=== PATIENT | male | born 2000 | race Caucasian/White ===

== ENCOUNTER 2022-11-25 19:25 | Observation (INO) | payer BC, SELFPAY ==
--- NOTE | ~2022-11-25 | US_ITS ---
EXAMINATION: US renal BI DATE: 11/26/2022 10:32 INDICATION: Acute kidney injury. TECHNIQUE: Multiple ultrasound grayscale images of the kidneys were obtained. COMPARISON: None. FINDINGS: The right kidney measures 11.5 x 4.6 x 6.1 cm. The left kidney measures 11.5 x 6.7 x 5.7 cm. The kidn eys demonstrate normal parenchymal echogenicity. There is no hydronephrosis. The bladder is normal. IMPRESSION: 1. Normal kidneys. No hydronephrosis. Reviewed, dictated and finalized at location A.
[2022-11-25 19:37] VITALS: BP 122/91; PULSE 80; RESP 16; TEMP 36.1; O2SAT 96
[2022-11-25 19:52] VITALS: PULSE 80
--- NOTE | 2022-11-25 20:13 | ED.GENADULT ---
HPI - General Adult General Chief complaint: Unspecified Stated complaint: Dehydrated, muscle cramps Time Seen by Provider: 11/25/22 19:46 History of Present Illness HPI narrative: 21-year-old male reports for evaluation of feeling dehydrated and muscle cramping all over x1 day. 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 States he has been dehydrated before this is how he presents. He reports muscle cramping in his back, abdomen, extremities. States he has been drinking a lot of water without relief and began vomiting multiple episodes today. Reports he is only urinated 1 time today and it was very dark. Denies fever, diarrhea, dysuria, dizziness or syncope. Last bowel movement was yesterday and normal. Related Data Home Medications Medication Instructions Recorded Confirmed No Home Medications 11/26/22 11/26/22 Allergies Allergy/AdvReac Type Severity Reaction Status Date / Time No Known Allergies Allergy Verified 11/25/22 19:26 Review of Systems Review of Systems: CONSTITUTIONAL: Denies fever, chills EYES: Denies visual changes, redness, or discharge. ENT: Denies rhinorrhea, congestion, sore throat, or otalgia. CARDIOVASCULAR: Denies chest pain, palpitations, or edema. RESPIRATORY: Denies cough or dyspnea. GASTROINTESTINAL: See HPI GENITOURINARY: Denies dysuria or hematuria. SKIN: Denies rash or itching. MUSCULOSKELETAL: See HPI NEUROLOGIC: Denies headache, numbness, dizziness, or weakness. PSYCHIATRIC: Denies anxiety or depression. [facility], LAT[facility] Social History Social History Smoking packs per day: 1 Smoking cigarettes per day: 20.0 Smoking status: Heavy tobacco smoker Second hand tobacco smoke exposure: Yes Alcohol intake: current Drinks per week: 14 Substance use: current Substance use type: marijuana Lack of Transportation: No Lack of Food: Never True Current Housing: I Have Housing Concerned About Future Housing: No Difficulty Paying Gas/Electric Bills: No Difficulty Paying for Meds: No Currently Unemployed: No Education: High School Diploma/GED Difficulty w/ Childcare or Family Care: No Spiritual care concerns: No Exam Narrative: GENERAL: Well-appearing, in no acute distress. HEAD: Normocephalic EYES: PERRLA ENT: Nares clear. Mucous membranes moist. Oropharynx without tonsillar hypertrophy exudate or other lesions. NECK: Supple. CHEST: No respiratory distress. Clear to auscultation, no adventitious breath sounds. HEART: Regular rate and rhythm. No murmur heard. Normal peripheral pulses. ABDOMEN: Soft, nontender, normal active bowel sounds. EXTREMITIES: Normal range of motion. No edema. Intermittent muscle spasms throughout back. SKIN: Warm, dry, no rash. NEURO: No focal deficits. Alert and oriented x3. PSYCH: Normal mood and affect. Course Course Emergency Course: Offered pain medications to the patient, however he declines. Vital Signs Vital signs: Vital Signs Temperature 97 F L 11/25/22 19:37 Pulse Rate 80 11/25/22 19:37 Respiratory Rate 16 11/25/22 19:37 Blood Pressure 122/91 H 11/25/22 19:37 Pulse Oximetry 96 11/25/22 19:37 Oxygen Delivery Room Air 11/25/22 19:37 Temperature 97.6 F 11/25/22 22:54 Pulse Rate 71 11/25/22 22:54 Respiratory Rate 18 11/25/22 22:54 Blood Pressure 106/67 11/25/22 22:54 Pulse Oximetry 99 11/25/22 22:54 Oxygen Delivery Room Air 11/25/22 19:37 Medical Decision Making MDM Narrative Medical decision making narrative: 21-year-old male reports for evaluation of generalized muscle spasms and feeling dehydrated after being on the sun for multiple hours the past 2 days at his work. Vitals stable. Patient is well-appearing on exam other than intermittent muscle spasms in his back. CBC and CMP significant for elevated white blood cell count of 16.4, chloride 91, creatinine 2.4, GFR 34,
--- NOTE | 2022-11-25 20:16 | ECG_ITS ---
Measurements Intervals [place] Rate: 68 P: 70 TX: 157 QRS: 260 QRSD: 114 T: 52 QT: 404 QTc: 432 Interpretive Statements SINUS RHYTHM INTRAVENTRICULAR CONDUCTION DELAY MINIMAL Q WAVES- INFERIOR LEADS ST ELEVATION IN DIFFUSE LEADS, PROBABLY EARLY REPOLARIZATION BORDERLINE ECG NO PREVIOUS ECG AVAILABLE FOR COMPARISON Electronically Signed On 11-25-2022 22:13:32 CDT by Nghia Ford D.O.
[2022-11-25 20:32] LABS: Basophils Absolute Auto 0.1 K/mm3 (0.0-0.1); Basophils Percent Auto 0.4 % (0.2-1.2); Hematocrit 52.8 % (42.0-52.0); Hemoglobin 18.8 g/dL (14.0-18.0); Immature Granulocyte Absolute 0.07 K/mm3 (0.00-0.031); Immature Granulocyte Percent A 0.4 % (0-0.5); Lymphocytes Absolute Auto 1.42 K/mm3 (0.9-3.2); Lymphocytes Percent Auto 8.7 % (18.3-44.2); Mean Corpuscular HGB Conc 35.6 g/dl (32-36); Mean Corpuscular Volume 87.1 fl (80-100); Mean Platelet Volume 10.2 fl (7.4-10.4); Monocytes Absolute Auto 1.1 K/mm3 (0.1-0.6); Monocytes Percent Auto 6.7 % (2.6-8.5); Neutrophils Absolute Auto 13.8 K/mm3 (1.3-6.7); Neutrophils Percent Auto 83.8 % (45.5-73.1); Platelet Count Result 371 k/mm3 (150-375); Red Blood Count 6.06 M/mm3 (4.6-6.20); Red Cell Distribution Width 14.4 % (11.5-14.5); White Blood Count 16.4 K/mm3 (4.5-10.0)
[2022-11-25 20:40] LABS: Alanine Aminotransferase 40 U/L (6-50); Albumin Level 5.9 g/dL (3.5-5.1); Alkaline Phosphatase 83 U/L (38-126); Anion Gap 17 mmol/L (8-16); Appearance Urine Cloudy (Clear); Aspartate Amino Transferase 47 U/L (17-59); Bacteria Urine None Seen /hpf; Bilirubin Urine 2+ (Negative); Bilirubin,Total 1.9 mg/dL (0.2-1.3); Blood Urea Nitrogen 35 mg/dL (9-20); Blood Urine Negative (Negative); Calcium 10.8 mg/dL (8.4-10.2); Carbon Dioxide 30 mmol/L (22-30); Chloride 91 mmol/L (98-107); Color Urine Dark Yellow (Yellow); Creatine Kinase 533 U/L (55-170); Estimated CRCL calculation 43 ml/min; Estimated Glomerular Filt Rate 34; Glucose 122 mg/dL (65-110); Glucose Urine UA Negative (Negative); Hyaline Casts Urine Present /lpf; Ketones Urine Trace mg/dL (Negative); Leukocyte Esterase Ur Negative LEU/UL (Negative); Lipase 58 U/L (23-300); Magnesium 2.2 mg/dL (1.6-2.3); Nitrate Urine Negative (Negative); Non Pathogenic Casts >20; Phosphorus 5.7 mg/dL (2.5-4.5); Potassium 3.8 mmol/L (3.4-5.0); Protein Urine 1+ mg/dL (Negative); RBC Urine 0-2 /hpf (0-2); Sodium 138 mmol/L (137-145); Specific Grav Ur 1.026 (1.001-1.035); Squamous Epithelial Cell Urine None seen /hpf (Few); WBC Urine 0-5 /hpf
[2022-11-25 20:41] LABS: Add Urine Microscopic? YES
[2022-11-25] MEDS: ONDANSETRON INJ 4 MG/2 ML VIAL IV PUSH (20:52)
[2022-11-25] MEDS: SODIUM CHLORIDE 0.9% IV 1,000 ML 999 ML IV CONT ×2 (20:52→21:34)
[2022-11-25 21:49] VITALS: BP 101/58; PULSE 89; RESP 14; O2SAT 98
--- NOTE | 2022-11-25 22:17 | PM.IMHP ---
H&P: HPI History of Present Illness Date/Time: 11/25/22 22:17 Chief Complaint: Dehydration Narrative: This is a 21-year-old male with no significant medical history who reports for evaluation of feeling dehydrated and generalized muscle cramping of 1 day duration.? 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 Patient recalls he has been dehydrated before this is how he presents.? He reports muscle cramping in his back, abdomen, extremities.? States he has been drinking a lot of water without relief and began vomiting multiple episodes today.? Reports he is only urinated 1 time today and the urine was very dark.? He denies fever, diarrhea, dysuria, dizziness or syncope.? Last bowel movement was yesterday and normal. Review of Systems Review of Systems: CONSTITUTIONAL: Negative for any fevers, chills, night sweats, tiredness, fatigue, malaise, anorexia or weight loss. CARDIOVASCULAR: Negative for chest pain, palpitations, dizziness, orthopnea or lower extremity edema. RESPIRATORY: Negative for shortness of breath, cough, wheezing, sputum. GENITOURINARY: Negative for frequency, nocturia, dysuria, hematuria. GYNECOLOGIC: Negative for abnormal bleeding. HEMATOLOGIC: Negative for any abnormal bleeding or bruising. MUSCULOSKELETAL: Negative for joint swelling, stiffness or pain. SKIN: Negative for rashes, eruptions, lesions or dryness. NEUROLOGIC: Negative for any focal neurologic complaints. PSYCHIATRIC: Negative for anxiety, panic, depression. [facility] Social History Social History Smoking packs per day: 1 Smoking cigarettes per day: 20.0 Smoking status: Heavy tobacco smoker Second hand tobacco smoke exposure: Yes Alcohol intake: current Drinks per week: 14 Substance use: current Substance use type: marijuana Lack of Transportation: No Lack of Food: Never True Current Housing: I Have Housing Concerned About Future Housing: No Difficulty Paying Gas/Electric Bills: No Difficulty Paying for Meds: No Currently Unemployed: No Education: High School Diploma/GED Difficulty w/ Childcare or Family Care: No Spiritual care concerns: No Meds Home Medications and Allergies Home Medications Medication Instructions Recorded Confirmed Type No Home Medications 11/26/22 11/26/22 History Allergies Allergy/AdvReac Type Severity Reaction Status Date / Time No Known Allergies Allergy Verified 11/25/22 19:26 Vital Signs Vital Signs - 24 hr 11/25/22 19:37 11/25/22 19:52 11/25/22 21:49 Temperature 97 F L Pulse Rate 80 80 89 Respiratory Rate 16 14 Blood Pressure 122/91 H 101/58 L Pulse Oximetry 96 98 Oxygen Delivery Room Air Exam Narrative: GENERAL: The patient is alert and oriented, in no apparent distress. He is pleasant and conversant in full sentences. HEENT: Pupils are equally round and briskly reactive to light. Extraocular muscles are intact. Oral mucous membranes are moist without lesions. NECK: The patient has no noted JVD. No adenopathy is appreciated. CHEST/LUNGS: Lungs are clear bilaterally without rhonchi, rales, or wheezes. There is no subcutaneous air appreciated. There is no tenderness to the chest wall. HEART: The patient has a regular rate and rhythm. No murmurs, rubs, or gallops are appreciated. Distal pulses are 2+. No carotid bruits appreciated. ABDOMEN: The patient?s abdomen is flat, soft, nontender, and nondistended. Bowel sounds are positive. No organomegaly is appreciated. No masses are appreciated. There are no peritoneal signs. EXTREMITIES: The patient has no peripheral edema. There is no focal long bone tenderness or deformity. SKIN: The patient?s skin is warm and dry, without rashes or lesions. PSYCHIATRIC: The patient has normal mental status and has an appropriate affect. NEUROLOGIC: The patient has 5/5 strength to the upper and lower extremities bilaterally. Sensa
[2022-11-25 22:20] VITALS: BP 131/74; PULSE 80; RESP 19; O2SAT 99
[2022-11-25 22:54] VITALS: BP 106/67; PULSE 71; RESP 18; TEMP 36.4; O2SAT 99
[2022-11-25] MEDS: LACTATED RINGERS 1,000 ML 999 ML IV CONT (23:23)
[2022-11-26] MEDS: LACTATED RINGERS 1,000 ML 999 ML IV CONT (00:25)
[2022-11-26] MEDS: LACTATED RINGERS 1,000 ML 100 ML IV CONT (04:31)
[2022-11-26 05:03] LABS: Creatinine Urine 109.9 mg/dL
[2022-11-26 05:04] LABS: Sodium Urine Random 43 meq/L
[2022-11-26 06:00] VITALS: BP 115/50; PULSE 58; RESP 18; TEMP 36.2; O2SAT 99
[2022-11-26 06:57] LABS: Hematocrit 39.7 % (42.0-52.0); Hemoglobin 13.5 g/dL (14.0-18.0); Mean Corpuscular Hemoglobin 30.2 pg (26-34); Mean Corpuscular Volume 88.8 fl (80-100); Platelet Count Result 248 k/mm3 (150-375); Red Blood Count 4.47 M/mm3 (4.6-6.20); Red Cell Distribution Width 14.1 % (11.5-14.5); White Blood Count 12.3 K/mm3 (4.5-10.0)
[2022-11-26 07:09] LABS: Anion Gap 0 mmol/L (8-16); Blood Urea Nitrogen 27 mg/dL (9-20); Calcium 8.3 mg/dL (8.4-10.2); Carbon Dioxide 34 mmol/L (22-30); Chloride 100 mmol/L (98-107); Estimated CRCL calculation 100 ml/min; Estimated Glomerular Filt Rate > 60; Glucose 97 mg/dL (65-110); Potassium 3.5 mmol/L (3.4-5.0); Sodium 134 mmol/L (137-145)
[2022-11-26 09:22] VITALS: O2SAT 100
--- NOTE | 2022-11-26 11:49 | PM.DS ---
DS: Admitting Diagnosis Discharge Date 11/26/22 Admitting Diagnosis Dehydration DS: Discharge Diagnosis Discharge Diagnosis (1) Acute dehydration: Code(s): E86.0 - Dehydration Status: Acute Assessment and Plan: This is a 21-year old gentleman with no significant past medical history who reports generalized cramps and reduced urinary output. On initial labs creatinine is elevated. Patient was started on IV fluids. He has received 4 L f IV fluids overnight. (2) SADE (acute kidney injury): Code(s): N17.9 - Acute kidney failure, unspecified Status: Acute Assessment and Plan: Acute non oliguric kidney injury due to dehydration: likely prerenal versus ischemic ATN. Continue supportive care. Calculate FENa. Obtain renal US. Avoid nephrotoxic medications. Consult renal in AM. Obtain drug screen. DS: Summary Hospital Course Hospital Course: 21-year-old male with no significant medical history presenting with dehydration and muscle cramping for about a day. He came in and had slightly elevated CK, all symptoms resolved and CK normalized with significant IV fluid administration. Education provided, he was discharged in stable condition. Please see above and med rec for details. Time Spent with Patient Time attestation: Total time spent providing and/or coordinating discharge services: Exam Narrative: GENERAL: The patient is alert and oriented, in no apparent distress. He is pleasant and conversant in full sentences. HEENT: Pupils are equally round and briskly reactive to light. Extraocular muscles are intact. Oral mucous membranes are moist without lesions. NECK: The patient has no noted JVD. No adenopathy is appreciated. CHEST/LUNGS: Lungs are clear bilaterally without rhonchi, rales, or wheezes. There is no subcutaneous air appreciated. There is no tenderness to the chest wall. HEART: The patient has a regular rate and rhythm. No murmurs, rubs, or gallops are appreciated. Distal pulses are 2+. No carotid bruits appreciated. ABDOMEN: The patient?s abdomen is flat, soft, nontender, and nondistended. Bowel sounds are positive. No organomegaly is appreciated. No masses are appreciated. There are no peritoneal signs. EXTREMITIES: The patient has no peripheral edema. There is no focal long bone tenderness or deformity. SKIN: The patient?s skin is warm and dry, without rashes or lesions. PSYCHIATRIC: The patient has normal mental status and has an appropriate affect. NEUROLOGIC: The patient has 5/5 strength to the upper and lower extremities bilaterally. Sensation is intact throughout. Gait was not tested. DS: Data Data Completed and Pending Labs on day of discharge: Labs from last 24 hours 11/26/22 11/26/22 11/25/22 06:38 04:47 20:12 WBC 12.3 H RBC 4.47 L Hgb 13.5 L D Hct 39.7 L MCV 88.8 MCH 30.2 MCHC 34.0 RDW 14.1 Plt Count 248 MPV 10.0 Immature Gran % (Auto) Neut % (Auto) Lymph % (Auto) [place] % (Auto) Eos % (Auto) Baso % (Auto) Lymph # (Auto) [place] # (Auto) Eos # (Auto) Baso # (Auto) Abs Immat Gran (auto) Absolute Neuts (auto) Absolute Nucleated RBC Nucleated RBC % Sodium 134 L Potassium 3.5 Chloride 100 Carbon Dioxide 34 H Anion Gap 0 L BUN 27 H Creatinine 1.00 Estim Creat Clear Calc 100 Estimated GFR > 60 Glucose 97 Calcium 8.3 L Phosphorus Magnesium Total Bilirubin AST ALT Alkaline Phosphatase Total Creatine Kinase Cancelled Total Protein 10.0 H Albumin 5.9 H Lipase 58 Urine Color Dark yellow Urine Appearance Cloudy H Urine pH 5.0 Ur Specific [place] 1.026 Urine Protein 1+ H Urine Glucose (UA) Negative Urine Ketones Trace H Ur Blood (Man) Negative Urine Nitrate Negative Urine Bilirubin 2+ H Urine Urobilinogen 1.0 Leukocyte Esterase Rfl Negative Urine RBC 0-2 Urine WBC 0-5 Ur Squamous E
== END 2022-11-26 12:50 | disposition home or self-care (01) ==
LOC: ANHED 21:21 → ANH3MEDSUR 23:37
PROVIDERS: Admitting Provider Internal Medicine; Emergency Provider Physician Assistant; Visit Provider Student in an Organized Health Care Education/Training Program
DX: E86.0 Dehydration (principal); N17.9 Acute kidney failure, unspecified; I45.4 Nonspecific intraventricular block; F17.210 Nicotine dependence, cigarettes, uncomplicated; F10.90 Alcohol use, unspecified, uncomplicated; F12.90 Cannabis use, unspecified, uncomplicated
CPT/HCPCS: 36415; 76775; 80048; 80053; 81001; 82550; 82570; 83690; 83735; 84100; 84300; 85025; 85027; 93005; 96360; 96361; 96374; 99285; G0378; G0379; J2405; J7030; J7120

== ENCOUNTER 2025-03-21 16:46 | Emergency (ER) | payer OTHER, SELFPAY ==
--- NOTE | ~2025-03-21 | XR_ITS ---
EXAMINATION: XR chest 2V 03/21/2025 17:25 INDICATION: Cough PROCEDURE: 2 view chest COMPARISON: No prior studies for comparison. FINDINGS: The lungs are clear. The cardiomediastinal silhouette is within normal limits. There are no pleural effusions. There is no pneumothorax suspected. IMPRESSION: 1: NO ACUTE CARDIOPULMONARY DISEASE. Reviewed, dictated and finalized at location O.
--- NOTE | ~2025-03-21 | CT_ITS ---
EXAMINATION: CT BRAIN W/O DATE: 03/21/2025 17:44 INDICATION: Recent head injury. Trauma. TECHNIQUE: Computed tomography (CT) of the head was performed without intravenous contrast. The dose-length product was 681.00 mGy-cm. Automated exposure control and iterative reconstruction technique were employed. COMPARISON: No prior studies for comparison. FINDINGS: Normal brain parenchymal volume for age. Normal duggan-white differentiation. No acute intracranial hemorrhage, infarction, mass or mass effect. No ventriculomegaly or midline shift. Midline sagittal images demonstrate a normal corpus callosum, craniovertebral junction and sella turcica. Basilar cisterns are patent. Paranasal sinuses and mastoids are pneumatized. No depressed skull fractures. IMPRESSION: 1. No acute intracranial abnormality. Reviewed, dictated and finalized at location O.
--- NOTE | ~2025-03-21 | CT_ITS ---
EXAMINATION: CT thoracic lumbar wo con, 03/21/2025 17:35 CDT HISTORY: back pain, recent trauma COMPARISON: No comparisons available. Technique: Axial images were obtained of the spine per protocol. One or more of the following dose reduction techniques were used: automated exposure control, adjustment of the mA and/or kV according to patient size, use of iterative reconstruction technique. Unless otherwise stated, incidental findings do not require dedicated follow up imaging Findings: The vertebral heights are intact. No fracture or subluxation. The disc heights are intact. Soft tissues there are renal calculi the largest right kidney midpole 2 mm. Impression: No acute abnormality. Reviewed, dictated and finalized at location A. Impression: No acute abnormality.
--- NOTE | ~2025-03-21 | CT_ITS ---
EXAMINATION: CT facial & cervical spine wo DATE: 03/21/2025 17:44 INDICATION: Recent head trauma TECHNIQUE: Computed tomography (CT) of the maxillofacial region and cervical spine was performed without intravenous contrast. The dose-length product (DLP) was 468.02 mGy-cm. Automated exposure control and iterative reconstruction technique were employed. COMPARISON: None FINDINGS: MAXILLOFACIAL CT: No acute abnormality. Paranasal sinuses and orbits are intact. CERVICAL SPINE CT: Normal cervical lordosis. Vertebral body and disc heights are preserved. Craniovertebral junction is normal. Odontoid process is normal. No evidence for perched facet. Lung apices are normal. Spinous processes are normal. IMPRESSION: 1. No acute abnormality of the facial bones or cervical spine. Reviewed, dictated and finalized at location O.
[2025-03-21 17:00] VITALS: BP 119/62; PULSE 98; RESP 16; TEMP 39.4; O2SAT 99
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
[2025-03-21] MEDS: ONDANSETRON INJ 4 MG/2 ML VIAL IV PUSH (17:47)
[2025-03-21] MEDS: MORPHINE SULFATE (*CRX) 4 MG/ML INJ IV PUSH (17:47)
[2025-03-21] MEDS: SODIUM CHLORIDE 0.9% IV 1,000 ML 999 ML IV CONT (17:47)
[2025-03-21 17:52] LABS: Strep Group A RT-PCR DETECTED (Negative)
[2025-03-21 18:00] LABS: Hematocrit 41.6 % (42.0-52.0); Hemoglobin 13.8 g/dL (14.0-18.0); Immature Granulocyte Percent A 0.4 % (0-0.5); Lymphocytes Absolute Auto 1.20 K/mm3 (0.9-3.2); Mean Corpuscular HGB Conc 33.2 g/dl (32-36); Mean Corpuscular Hemoglobin 29.8 pg (26-34); Mean Corpuscular Volume 89.8 fl (80-100); Nucleated Red Blood Cells Absolute Auto 0.000 K/mm3 (0.0-0.012); Nucleated Red Blood Cells Perc 0.0 % (0.0-0.2); Platelet Count Result 239 k/mm3 (150-375); Red Blood Count 4.63 M/mm3 (4.6-6.20); White Blood Count 9.7 K/mm3 (4.5-10.0)
--- OUTSIDE RECORDS SUMMARY | 2025-03-21 18:01 | XMS_ITS | Clinical Summary ---
Author Organization [facility] Address [address] [place] [address] Care Team Providers Care Php Developer Name Role Phone Nia Kong CUSTOMER SUPPORT PROFESSIONAL-DEVELOPMENT SPEC Primary Care Provider + Source Comments [facility],non-owned Affiliates and Associated Physician Practices is amultiple site organization consisting of ambulatory clinics and hospital sitesin [place], [place], [place] and [place]. This disclosure is being madepursuant to the Care Everywhere program and may not contain all information available regarding this patient. Last updated 18.[facility] Allergies No known active allergies Medications * This document contains information received from the source organization and may not represent a complete record from that organization. * Be aware that medications may not be up to date on this document. Alwaysverify current medications with the patient. docusate sodium (COLACE) 100 MG capsule Take 1 capsule by mouth 2 times daily as needed for Constipation (relief of difficult bowel movements) 0 Active acetaminophen (TYLENOL) 500 MG tablet Take 1 tablet by mouth every 6 hours as needed for Fever or Pain Maximum allowable Acetaminophen amount = 4 Grams (4000 mg) / 24 hours. 0 0 Active ibuprofen (MOTRIN) 800 MG tablet Take 1 tablet by mouth every 6 hours as needed for Pain 30 tablet 0 Active tamsulosin (FLOMAX) 0.4 MG capsule Take 1 capsule by mouth once daily after breakfast At the same time every day after a meal. 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 (F LUZONE; FLULAVAL; FLUARIX; AFLURIA QUADRIVALENT; 6MO+), 0.5 ML (IIV4) 06/11/2020 Social History Tobacco Use Types Packs/Day Years Used Date Smoking Tobacco: Every Day Cigarettes 1 3 Smokeless Tobacco: Never Tobacco Cessation:Ready to Q uit: No; Counseling Given: Yes Alcohol Use Standard Drinks/Week Comments No 0 (1 standard drink = 0.6 oz pur e alcohol) very minimal Sex and Gender Information Value Date Recorded Sex Assigned at Not on file Legal Sex Male 9:59 AM CDT Gender Identity Not on file Sexual Orientation Not on file Last Filed Vital Signs Vital Sign Reading Time Taken Comments Blood Pressure 104/60 08/30/2020 10:54 AM INSPECTOR RECEIVING Pulse 84 08/30/2020 10:54 AM INSPECTOR RECEIVING Temperature 36.2 C (97.2 F) 08/30/2020 10:54 AM INSPECTOR RECEIVING Respiratory Rate 18 08/30/2020 10:5 4 AM INSPECTOR RECEIVING Oxygen Saturation 100% 08/30/2020 10: 54 AM INSPECTOR RECEIVING Inhaled Oxygen Concentration - - Weight 68.9 kg (151 lb 12.8 oz) 021 10:54 AM INSPECTOR RECEIVING Height 182.9 cm (6') 08/30/2020 10:54 AM INSPECTOR RECEIVING Body Mass Index 20.59 08/30/2020 10:54 AM INSPECTOR RECEIVING Plan of Treatment Health Maintenance Due Date Last Done Comments HIV SCREENING 2013 HPV VACCINE (1 - Male 3-dose series) 2013 DTAP/TDAP/TD VACCINES (1 - Tdap) 2017 HEPATITIS B VACCINE (1 of 3 - 19+ 3-dose series) 2017 DEPRESSION SCREENING 06/28/2024 COVID-19 VACCINE (1 - 4-2 5 season) 2025 INFLUENZA VACCINE (#1) 2025 06/11/2020 ZOSTER VACCINE (1 of 2) 2048 HEPATITIS C SCREENING Completed 06/09/2020 HIB VACCINE Aged Out No longer eligi ble based on patient's age to complete this topic MENINGOCOCCAL (Group B) VACC INE SHARED DECISION-MAKING Aged Out No longer eligibl e based on patient's age to complete this topic MENINGOCOCCAL GROUPS A/C/Y/W VACCINE Aged Out No longer eligible b ased on patient's age to complete this topic PNEUMOCOCCAL VACCINE Aged Out No long er eligible based on patient's age to complete this topic Medical Devices Implanted Type Area Economic Geographer Device Identifier Shelf Expiration Date Model / Serial / Lot Stent Uret 6fr 28cm Pgtl Crv Tpr Tip Implanted:Qty: 1 on 06/11/2020 by Cheryl Oconnor MD at [facility] Right: Ureter [employer] 09/05/2022 [id number] / / [id number] Procedures Procedure Name Priority Date/Time Associated Diagnosis Comments HEPATITIS C AB SCREEN RFLX NAAT QUANT STAT 06/09/2020 10:13 PM INSPECTOR RECEIVING from Last 3 Months or Most Recently Relevant to Health Maintenance Results * HEPATITIS C AB SCREEN RFLX NAAT QUANT (06/09/2020 10:13 PM INSPECTOR RECEIVING) Hepatitis C Antibody Non-react nela Non-reac tive 06/09/2020 11:23 PM INSPECTOR RECEIVING [facility] Comment:Hepatitis C Antibody screen indicates no serologic evidence of past or current infection with Hepatitis C Virus. Patients with unexplained liver disease who are immunocompromised or suspected of having acute Hepatitis C infection may benefit from Nucleic Acid Test (RAZ) for Hepatitis C Viral RNA to confirm Hepatitis C status. Blood BLOOD SPECIMEN / Unknown Venipuncture / Unknown 06/09/2020 10:13 PM INSPECTOR RECEIVING 06/09/2020 6:15 PM INSPECTOR RECEIVING us Leandra Pearson MD LAB - CHEMISTRY ORDERABLES Final Result [facility] [address] [place] [address], [facility] [phone] from Last 3 Months or Most Recently Relevant to Health Maintenance Insurance * Guarantor: DIEGO SCHNEIDER Account Type Relation to Patient Date of Phone Billing Address Personal/Family Mother [employer] Advance Directives * Full Code (Latest Code Status on File) Date Activated Date Inactivated Comments 07/22/2018 1:49 PM 07/23/2018 4:20 PM Care Teams Php Developer Relationship Specialty Start Date End Date Nia Kong, CUSTOMER SUPPORT PROFESSIONAL-DEVELOPMENT SPEC [address] [place], [place] [id number] PCP - General Nurse Practitioner 02/14/15
[2025-03-21 18:05] LABS: Influenza A QL RT-PCR Negative (Negative); Influenza B QL RT-PCR Negative (Negative); RSV RNA, RT-PCR Negative (Negative); SARS-CoV-2 RNA PCR Negative (Negative)
[2025-03-21 18:05] LABS: Add Urine Microscopic? YES; Appearance Urine Clear (Clear); Glucose Urine UA Negative (Negative); Leukocyte Esterase Ur 1+ LEU/UL (Negative); Nitrate Urine Negative (Negative); Non Pathogenic Casts 0-2; Specific Grav Ur 1.016 (1.001-1.035)
[2025-03-21 18:11] LABS: Alanine Aminotransferase 23 U/L (6-50); Albumin Level 4.1 g/dL (3.5-5.1); Alkaline Phosphatase 51 U/L (38-126); Anion Gap 7 mmol/L (4-12); Aspartate Amino Transferase 30 U/L (17-59); Bilirubin,Total 0.5 mg/dL (0.2-1.3); Blood Urea Nitrogen 11 mg/dL (9-20); Calcium 8.7 mg/dL (8.4-10.2); Carbon Dioxide 27 mmol/L (22-30); Chloride 102 mmol/L (98-107); Estimated CRCL calculation 121 ml/min; Estimated Glomerular Filt Rate > 60; Glucose 94 mg/dL (65-110); Potassium 3.8 mmol/L (3.4-5.0); Sodium 136 mmol/L (137-145); Total Protein 7.1 g/dL (6.3-8.2)
[2025-03-21 18:30] VITALS: BP 122/65; PULSE 92; RESP 18; TEMP 39.3; O2SAT 100
[2025-03-21] MEDS: KETOROLAC 15 MG/ML VIAL (*BKC) IV PUSH (18:31)
[2025-03-21] MEDS: ACETAMINOPHEN 500 MG TABLET 1000 MG PO (18:31)
[2025-03-21 19:51] VITALS: TEMP 37.8
[2025-03-21 19:55] LABS: Trichomonas Vag PCR NOT DETECTED (NOT DETECTE)
[2025-03-21] MEDS: DOXYCYCLINE HYCLATE 100 MG TABLET PO (20:35)
[2025-03-21] MEDS: AMOXICILLIN 500 MG CAPSULE PO (20:41)
== END 2025-03-21 20:49 | disposition home or self-care (01) ==
PROVIDERS: Emergency Provider Registered Nurse
DX: S06.0XAA Concussion with loss of consciousness status unknown, initial encounter (principal); J02.0 Streptococcal pharyngitis; A56.8 Sexually transmitted chlamydial infection of other sites; Z20.822 Contact with and (suspected) exposure to COVID-19; F17.210 Nicotine dependence, cigarettes, uncomplicated; W22.09XA Striking against other stationary object, initial encounter
CPT/HCPCS: 36415; 70450; 70486; 71046; 72125; 72128; 72131; 80053; 81001; 82077; 83605; 85025; 87086; 87491; 87591; 87637; 87651; 87661; 96361; 96374; 96375; 99284; A9270; J1885; J2270; J2405; J7030